=== PATIENT | female | born 1950 | race Caucasian/White ===

== ENCOUNTER 2016-11-30 20:44 | Emergency (ER) | payer MEDICARE, OTHER ==
[~2016-11-30] VITALS: Ht 170.2 cm; Wt 55.0 kg
[2016-11-30 20:51] VITALS: BP 145/75; PULSE 88; RESP 18; TEMP 99.7; O2SAT 98
[2016-11-30] MEDS ORDERED: TETANUS/DIPHTHERIA TOXOID ADULT 0.5 ML VIAL IM ONE (21:00)
[2016-11-30] MEDS ORDERED: LIDOCAINE 1%/EPINEPHrine 1:100,000 SOLN 20 ML VIAL INFIL ONE (21:00)
[2016-11-30] MEDS ORDERED: TYLE325T PO (21:05)
[2016-11-30] MEDS ORDERED: ALLE10TA PO (21:05)
[2016-11-30] MEDS ORDERED: ALA1CRE2 TOPICAL (21:05)
[2016-11-30] MEDS ORDERED: LORA-474 PO (21:05)
[2016-11-30] MEDS ORDERED: MILKSUS PO (21:05)
[2016-11-30] MEDS ORDERED: RISP1TAB2 PO (21:05)
[2016-11-30] MEDS ORDERED: METR0.752 TOPICAL (21:05)
[2016-11-30] MEDS ORDERED: FURO40TA PO (21:05)
[2016-11-30] MEDS ORDERED: POTA10SO12 PO (21:05)
--- NOTE | 2016-11-30 21:15 | PD ---
HPI . Head injury Chief Complaint: Fall Time Seen by Provider: 20:54 Travel History International Travel<30 days: No Contact w/Intl Traveler<30days: No Traveled to known affect area: No History of Present Illness HPI This is a [facility] patient with dementia who was sent to us for evaluation of an apparent head injury. [facility]. She was noted to have a scalp laceration. She was subsequently presented here for further evaluation. The patient is not on an anticoagulant. This patient is unable to give us any history at all. PFSH Past Medical History ?: Not Social History Tobacco Use: No Allergies-Medications (Allergen,Severity, Reaction): Coded Allergies: No Known Allergies (Unverified , 11/30/16) Reported Meds & Prescriptions Reported Meds & Active Scripts Active Reported Risperidone 1 Mg Tab 1 Mg PO Q12HR Tylenol (Acetaminophen) 325 Mg Tab 650 Mg PO Q4H PRN Potassium Chloride Liq (Potassium Chloride) 20 Meq/15 Ml Soln 20 Meq PO DAILY Allergy Relief (Loratadine) 10 Mg Tab 10 Mg PO DAILY Furosemide 40 Mg Tab 40 Mg PO DAILY Milk of Magnesia Liq (Magnesium Hydroxide) 400 Mg/5 Ml Susp 30 Ml PO DAILY PRN [place] Topical (Hydrocortisone (Topical)) 1% Cream 1 Applic TOPICAL DIRECTED Metronidazole Topical 0.75 % Cream 1 Applic TOPICAL BID Ativan (Lorazepam) 1 Mg Tab 1 Mg PO Q6H PRN Review of Systems ROS Limitations: Other: (dementia) Physical Exam Narrative GENERAL: Awake and alert. In comprehensible words. SKIN: Warm and dry. 4 cm laceration to the posterior scalp. It appears to have been cut by a sharp object such as the edge of a piece of furniture. HEAD: Normocephalic. She has a mild contusion associated with the laceration. EYES: Pupils equal and round. Extraocular movements are intact. NECK: Trachea midline. Full range of motion with no apparent pain. CARDIOVASCULAR: Regular rate and rhythm. RESPIRATORY: No accessory muscle use. MUSCULOSKELETAL: No obvious deformities. No edema. NEUROLOGICAL: Awake and alert. No obvious cranial nerve deficits. Motor grossly within normal limits. PSYCHIATRIC: Unable to assess Data Data Last Documented VS Vital Signs Date Time Temp Pulse Resp B/P Pulse Ox O2 Delivery O2 Flow Rate FiO2 11/30/16 20:51 99.7 88 18 145/[address] Brain W/O Iv Contrast(Rout) (11/30/16 20:54) Ct Cerv Spine W/O Contrast (11/30/16 20:54) Tetanus/Diphtheria Tox Adult (Tetanus/Di (11/30/16 21:00) Lidocai-Epi 1%-1:100,000 Inj (Xylocaine- (11/30/16 21:00) Collar [place] (11/30/16 ) MDM Medical Decision Making Medical Screen Exam Complete: Yes Emergency Medical Condition: Yes Differential Diagnosis My differential diagnosis of head trauma includes but is not limited to scalp contusion, concussion, intracerebral hemorrhage. Narrative Course This is a demented [facility] patient who was sent to us for evaluation of a head injury. She has a laceration to the posterior scalp. Since she is demented and unable to give any history, CT of her head and neck has been ordered. We do not know her tetanus status. It will be updated. Last Impressions Head CT 11/30/162053 Signed Impressions: Service Date/Time: , November 30, 2016 21:41 - CONCLUSION: 1. No acute intracranial abnormality. 2. Atrophy. 3. Chronic small vessel ischemic change. Yang Boswell Jr., MD Cervical Spine CT 11/30/162053 Signed Impressions: Service Date/Time: November 21:43 - CONCLUSION: 1. Multilevel degenerative changes including areas of abutment of the cord and neural foraminal narrowing. 2. No fracture. Yang Boswell Jr., MD The laceration will be repaired by Daniela Keen PA-C. Diagnosis Primary Impression: Scalp laceration Qualified Code: S01.01XA - Scalp laceration, initial encounter Patient Instructions: General Instructions, Laceration (DC) Disposition: DISCHARGE HOME Condition: Stable Dominga Birmingham MD Nov 30, 2016 21:14
--- NOTE | 2016-11-30 21:57 | RADRPT ---
EXAM DATE/TIME: 11/30/2016 21:41 [facility] COMPARISON: No previous studies available for comparison. INDICATIONS : Trauma, fall. Laceration to posterior right side of head. RADIATION DOSE: 56.35 CTDIvol (mGy) MEDICAL HISTORY : Dementia. SURGICAL HISTORY : Non-responsive. ENCOUNTER: Initial ACUITY: 1 day PAIN SCALE: 0/10 LOCATION: cranial TECHNIQUE: Multiple contiguous axial images were obtained of the head. Using automated exposure control and adj ustment of the mA and/or kV according to patient size, radiation dose was kept as low as reasonably a chievable to obtain optimal diagnostic quality images. FINDINGS: CEREBRUM: Atrophy. Periventricular low attenuation change involving both cerebral hemispheres. The ventricles a re normal for age. No evidence of midline shift, mass lesion, hemorrhage or acute infarction. No ex tra-axial fluid collections are seen. POSTERIOR FOSSA: The cerebellum and brainstem are intact. The 4th ventricle is midline. The cerebellopontine angle i s unremarkable. EXTRACRANIAL: The visualized portion of the orbits is intact. SKULL: The calvaria is intact. No evidence of skull fracture. CONCLUSION: 1. No acute intracranial abnormality. 2. Atrophy. 3. Chronic small vessel ischemic change. Yang Boswell Jr., MD on November 30, 2016 at 21:54 Board Certified Radiologist. This report was verified electronically.
--- NOTE | 2016-11-30 22:00 | RADRPT ---
EXAM DATE/TIME: 11/30/2016 21:43 [facility] COMPARISON: No previous studies available for comparison. INDICATIONS : Trauma, fall. RADIATION DOSE: 28.17 CTDIvol (mGy) MEDICAL HISTORY : None SURGICAL HISTORY : None. ENCOUNTER: Initial ACUITY: 1 day PAIN SCALE: 0/10 LOCATION: neck TECHNIQUE: Volumetric scanning of the cervical spine was performed. Multiplanar reconstructions in the sagittal, coronal and oblique axial planes were performed. Using automated exposure control and adjustment o f the mA and/or kV according to patient size, radiation dose was kept as low as reasonably achievable to obtain optimal diagnostic quality images. FINDINGS: VERTEBRAE: Normal vertebral body height. ALIGNMENT: Loss of the natural lordosis with a kyphosis observed. Calcified plaque involving the right carotid artery. A 5 mm low-density nodule involving the right lo be of the thyroid. C2-C3: The bony spinal canal is normal in size. No evidence of disc bulge or herniation. The neural forami na are bilaterally patent. C3-C4: A mild broad-based disc bulge which abuts the ventral portion of the cord. Prominent fabien uncovertebra l hypertrophy generates significant bilateral neural foraminal narrowing. C4-C5: A broad-based disc osteophyte complex abuts the ventral portion of the cord. Prominent bony uncoverte bral hypertrophy generates significant bilateral neural foraminal narrowing. C5-C6: A broad-based disc osteophyte complex abuts the ventral portion of the cord. Prominent bony uncoverte bral hypertrophy generates significant bilateral neural foraminal narrowing. C6-C7: A broad-based disc bulge eccentric to the left abuts the cord. Mild to moderate bilateral neural fora lizzette narrowing. C7-T1: The bony spinal canal is normal in size. No evidence of disc bulge or herniation. The neural forami na are bilaterally patent. CONCLUSION: 1. Multilevel degenerative changes including areas of abutment of the cord and neural foraminal narro wing. 2. No fracture. Yang Boswell Jr., MD on November 30, 2016 at 21:56 Board Certified Radiologist. This report was verified electronically.
[2016-11-30] MEDS ORDERED: LIDOCAINE 1%/EPINEPHrine 1:100,000 SOLN 30 ML VIAL ONE (22:27)
--- NOTE | 2016-11-30 22:37 | PD ---
Physical Exam Time Seen by Provider: 22:34 Narrative I was asked to perform a laceration repair to the right posterior scalp. Data Data Last Documented VS Vital Signs Date Time Temp Pulse Resp B/P Pulse Ox O2 Delivery O2 Flow Rate FiO2 11/30/16 20:51 99.7 88 18 145/[address] Brain W/O Iv Contrast(Rout) (11/30/16 20:54) Ct Cerv Spine W/O Contrast (11/30/16 20:54) Tetanus/Diphtheria Tox Adult (Tetanus/Di (11/30/16 21:00) Lidocai-Epi 1%-1:100,000 Inj (Xylocaine- (11/30/16 21:00) Collar [place] (11/30/16 ) Lidocai-Epi 1%-1:100,000 Inj (Xylocaine- (11/30/16 22:27) MDM Supervised Visit with WILLIAM: No Procedures Procedure Narrative LACERATION LOCATION: Right posterior scalp LENGTH: 3 cm NUMBER OF STITCHES/WILLIE: 7 willie REPAIR: The area of the laceration was prepped with Betadine and sterilely draped. The laceration was infiltrated with 1% lidocaine with epinephrine. The wound was copiously irrigated and explored without evidence of foreign body , tendon injury or neurovascular injury. The wound was closed using willie. This was a single layer repair. A sterile dressing was applied. The patient was advised to keep the dressing clean and dry. Patient tolerated the procedure well. Diagnosis Primary Impression: Scalp laceration Qualified Code: S01.01XA - Scalp laceration, initial encounter Patient Instructions: General Instructions Departure Forms: Tests/Procedures Additional Instruction: Clean the wound twice daily with soap and water. Apply a thin layer of Neosporin ointment after you wash it. See your doctor in 7 days for suture removal. Seek care sooner for redness, drainage, warmth, unusual pain. Disposition: 01 DISCHARGE HOME Condition: Stable Daniela Keen Nov 30, 2016 22:37
[2016-12-01 00:54] VITALS: BP 95/57; PULSE 57; RESP 18; O2SAT 100
[2016-12-01 03:03] VITALS: BP 117/63; PULSE 68; RESP 18; O2SAT 100
[2016-12-01 09:45] VITALS: BP 118/62; PULSE 68; RESP 16; O2SAT 97
== END 2016-12-01 09:56 | disposition home or self-care (01) ==
LOC: NEPE 20:44
DX: S01.01XA Laceration without foreign body of scalp, initial encounter (principal); S09.90XA Unspecified injury of head, initial encounter; F03.90 Unspecified dementia, unspecified severity, without behavioral disturbance, psychotic disturbance, mood disturbance, and anxiety; W18.30XA Fall on same level, unspecified, initial encounter; Y93.9 Activity, unspecified; Y92.10 Unspecified residential institution as the place of occurrence of the external cause; Y99.9 Unspecified external cause status; Z23 Encounter for immunization
CPT/HCPCS: 12002; 70450; 72125; 90471; 90714; 99284; L0150